=== PATIENT | male | born 1980 | race Hispanic/Latino ===

== ENCOUNTER → 2019-11-07 | Outpatient (CLI) | payer BC | LOC: M LABSMTC 12:06 | PROVIDERS: ATTEND Family Medicine | DX: Z03.818 Encounter for observation for suspected exposure to other biological agents ruled out (principal); Z11.59 Encounter for screening for other viral diseases | CPT/HCPCS: C9803; U0003 ==

== ENCOUNTER → 2020-01-20 | Outpatient (REF) | payer BC ==
[2020-02-19 15:46] LABS: CHLAMYDIA DNA AMPLIFICATION NEGATIVE (NEGATIVE); GC DNA AMPLIFICATION NEGATIVE (NEGATIVE)
== END ==
LOC: M LAB REF 15:07
PROVIDERS: ATTEND Physician Assistant Medical
DX: Z72.51 High risk heterosexual behavior (principal)

== ENCOUNTER → 2020-02-27 | Outpatient (CLI) | payer BC ==
[~2020-02-27] MED LIST: METHACHOLINE KIT (J7674) INH ONE
--- NOTE | 2020-02-27 15:56 | PFTRPT ---
Visit Date: 02/27/2020 Second ID: [id number] Referring Doctor: Funmi Potter Height: 69.00 Inches Weight: 179.00 Lbs BSA: 1.97 Diagnosis: R06.02 QUALITY: Study of excellent technical quality. PROCEDURE: Under protocol, methacholine was administered. Even after a maximum dose of 25 mg or 188.875 CDUs, no provocation dose ever achieved. IMPRESSION: Negative methacholine challenge study. MTDD
== END ==
LOC: M CARPUL 14:28
PROVIDERS: ATTEND Nurse Practitioner Adult Health
DX: R06.02 Shortness of breath (principal)
CPT/HCPCS: 94070; J7674

== ENCOUNTER → 2020-09-08 | Outpatient (REF) | payer BC | LOC: M LAB REF 12:33 | PROVIDERS: ATTEND Ophthalmology | DX: D23.112 Other benign neoplasm of skin of right lower eyelid, including canthus (principal); D23.122 Other benign neoplasm of skin of left lower eyelid, including canthus ==